=== PATIENT | male | born 1970 | race Caucasian/White ===

== ENCOUNTER 2019-06-25 11:17 | Observation (INO) | payer OTHER ==
[~2019-06-25 11:17] MED LIST: Iopamidol-370 76% 500 ML 1 ML ONE
[2019-06-25] MEDS ORDERED: Morphine 4 MG/ML VIAL ONE ×2 (12:04→12:47)
[2019-06-25] MEDS ORDERED: Ondansetron PF 4 MG/2 ML Vial ONE (12:05)
--- NOTE | 2019-06-25 12:23 | CT ---
CT Brain WO Con: 06/25/2019 12:00 PM CLINICAL HISTORY: Fall off roof with head injury. IMAGING TECHNIQUE: Multiple CT images were obtained of the brain without IV contrast. COMPARISON: None. FINDINGS: Brain: No acute infarct or hemorrhage is evident. No midline shift. Ventricles: Normal. No hydrocephalus. Skull: Intact. Visualized Paranasal sinuses: There is a small mucous retention cyst involving the inferior aspect of the left maxillary sinus. Remaining paranasal sinuses are clear. Mastoid air cells:Clear. Extracranial soft tissues:Normal. IMPRESSION: No acute intracranial abnormality.
--- NOTE | 2019-06-25 12:25 | CT ---
CT Cervical Spine WO Con Indication: Fall off roof with neck injury COMPARISON: None. FINDINGS: Fracture: None. Spinal alignment: No acute malalignment. Craniocervical junction: Within normal limits. Vertebral body heights: Maintained. Cervical spine degenerative change: There is mild multilevel spondylosis of the cervical spine. Lung apices: Clear. IMPRESSION: No acute osseous abnormality.
[2019-06-25 12:34] LABS: #Basophils 0.1 thou/uL (0.0-0.2); #Eosinphils 0.1 thou/uL (0.0-0.7); #Lymphocytes 1.4 thou/uL (1.20-3.40); #Monocytes 0.6 thou/uL (0.11-0.59); #Neutrophils 6.6 thou/uL (1.40-6.50); %Basophils 0.6 % (0.0-1.0); %Eosinophils 1.7 % (0.0-10.0); %Lymphocytes 16.3 % (21.0-51.0); %Monocytes 6.3 % (0.0-10.0); %Neutrophils 75.2 % (42.0-75.0); Hemoglobin 13.8 g/dL (14.0-18.0); Mean Corpuscular Hemoglobin 31.4 pg (27.0-31.0); Mean Corpuscular Volume 92.3 fL (78.0-98.0); Mean Platelet Volume 8.6 fL (7.4-10.4); Platelet Count 213 thou/uL (130-400); RBC Distribution Width 11.6 % (11.5-14.5); White Blood Cell (WBC) Count 8.7 thou/uL (4.8-10.8)
--- NOTE | 2019-06-25 12:38 | CT ---
CT OF THE CHEST, ABDOMEN AND PELVIS WITH IV CONTRAST INDICATION: Fall from roof with right upper back pain COMPARISON: None FINDINGS: CHEST: Lungs: There is a small anterior right-sided pneumothorax. There is bibasilar atelectasis Pleural space: No effusion. Mediastinum: No pathologically enlarged lymph nodes are evident. Axilla: No pathologically enlarged lymph nodes. ABDOMEN: Liver: No focal lesion. Gallbladder: Normal appearing. Pancreas: Normal. Adrenal glands: Normal. Spleen: Normal. Kidneys and ureters: Normal. No hydronephrosis. Vasculature: Normal. Lymph nodes:No lymphadenopathy. Free fluid in abdomen:No free fluid is evident. PELVIS: Small and large bowel: Normal Appendix:Normal Bladder: Normal. Rectal and perirectal soft tissues:Normal. Reproductive structures: Normal. Free fluid in pelvis: No free fluid is evident. Lymphadenopathy pelvis: No lymphadenopathy is evident. Osseous structures: There is a comminuted right scapular body fracture. There are minimally displaced right posterior lateral third through eighth rib fractures. There is scattered degenerative and osteoarthritic changes. Soft tissues:There is a fat-containing umbilical hernia. IMPRESSION: 1. Small right anterior pneumothorax. 2. Right posterior lateral third through eighth rib fractures. 3. Comminuted right scapular body fracture. 4. Findings called to Cyndi Agee at 12:30 PM on June 25, 2019.
[2019-06-25 12:55] LABS: ALT (SGPT) 44 U/L (8-55); AST (SGOT) 38 U/L (5-34); Albumin 4.1 g/dL (3.5-5.0); Alkaline Phosphatase 69 U/L (40-110); Anion Gap 12 mmol/L (10-20); BUN (Urea Nitrogen) 27 mg/dL (8.9-20.6); Bilirubin, Total 0.3 mg/dL (0.2-1.2); Calc. Creatinine Clearance 0 mL/min (70-130); Calcium 8.9 mg/dL (7.8-10.44); Carbon Dioxide 25 mmol/L (22-29); Chloride 102 mmol/L (98-107); Estimated GFR-MDRD 90; Globulin 2.5 g/dL (2.4-3.5); Glucose 127 mg/dL (70-105); Potassium 4.3 mmol/L (3.5-5.1); Protein, Total 6.6 g/dL (6.0-8.3); Sodium 135 mmol/L (136-145)
[2019-06-25] MEDS ORDERED: Ondansetron PF 4 MG/2 ML Vial IVP PRN (13:52)
[2019-06-25] MEDS ORDERED: Dextrose 50% Abboject 50 ML SYRINGE SLOW IVP PRN (13:52)
[2019-06-25] MEDS ORDERED: Dextrose 5% in Water 1,000 ML IV PRN (13:52)
[2019-06-25] MEDS ORDERED: Morphine 4 MG/ML VIAL SLOW IVP PRN (13:52)
[2019-06-25] MEDS ORDERED: hydrALAZINE 20 MG/ML VIAL SLOW IVP PRN (13:52)
[2019-06-25] MEDS ORDERED: traMADol HCl 50 MG TAB PO PRN (13:54)
[2019-06-25] MEDS ORDERED: Cyclobenzaprine 10 MG TAB PO PRN (13:54)
[2019-06-25 14:52] LABS: Bilirubin Negative (Negative); Blood, Urine Negative (Negative); Clarity Clear (Clear); Glucose, Urine (Dipstick) Normal (Negative); Leukocyte Negative Leu/uL (Negative); Nitrite Negative (Negative); Protein, Urine (Dipstick) 10 mg/dL (Neg-Trace); Urobilinogen Normal mg/dL (Less than 2)
--- NOTE | 2019-06-25 15:01 | RAD ---
XR Humerus Rt 2 View STANDARD INDICATION: Trauma to the right arm with right arm pain COMPARISON: None. FINDINGS: Bones: There is a comminuted right scapular body fracture. No acute fracture seen involving the right humerus. Soft tissues: Right-sided rib fractures as seen on the comparison CT performed earlier Joints: The visualized knee and hip appear within normal limits. IMPRESSION: Comminuted right scapular body fracture with numerous right-sided rib fractures. No acute fracture or subluxation of the right humerus.
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
[2019-06-25] MEDS: Gabapentin 300 MG CAP PO SCH ×2 (15:41→20:43)
[2019-06-25] MEDS: Ibuprofen 600 MG TAB PO SCH ×2 (15:41→20:43)
[2019-06-25 15:59] VITALS: BMI 26.6
[2019-06-25] MEDS: Acetaminophen 500 MG TAB PO SCH ×2 (17:42→23:14)
[2019-06-25] MEDS: traMADol HCl 50 MG TAB PO PRN (18:17)
[2019-06-25] MEDS: Senokot S 8.6-50 MG TAB PO SCH (20:43)
[2019-06-25] MEDS ORDERED: Atorvastatin Calcium 40 MG TAB PO SCH (21:00)
--- NOTE | 2019-06-25 22:16 | CON ---
DATE OF CONSULTATION: 06/25/2019 HISTORY OF PRESENT ILLNESS: Mr. 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 The patient was helping work on the roof and fell from 10 feet onto his right shoulder on his deck onto the railing. The patient is complaining of right shoulder and right rib pain. The patient's pain score on admission was 8/10, improved with pain medications. No previous history of right shoulder surgery or injury or dislocation. PAST MEDICAL HISTORY: Includes hyperlipidemia, high cholesterol, and depression. PAST SURGICAL HISTORY: Splenic repair at young age of 12, hernia repairs, and bilateral meniscectomies. ALLERGIES: NO KNOWN DRUG ALLERGIES. MEDICATIONS: Lipitor and Wellbutrin. SOCIAL HISTORY: He is a former smoker. Quit smoking 10 years ago. Drinks socially. 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 REVIEW OF SYSTEMS: Noncontributory. PHYSICAL EXAMINATION: VITAL SIGNS: On admission were 144/91, 72, 16, 98, 96% on room air. GENERAL: Alert and oriented male, in no acute distress. Resting comfortably in bed. EXTREMITIES: Right upper extremity, neurovascularly intact, distally 2+ radial pulse. Medial, ulnar, and radial distributions intact. Volar and dorsiflexion of the fingers noted. The patient is able to flex and extend his elbow as well as move his shoulder, has some pain in his right scapular body with motion. DIAGNOSTIC DATA: Review of the right CT shows a scapular body fracture without extension of the glenoid. The patient has a CT chest, abdomen, pelvis, head and neck with only 3 through 8 rib fractures, scapular body fracture, and right pneumothorax. IMPRESSION: 1. Right scapular body fracture. 2. Right 3 through 8 rib fracture. 3. Right pneumothorax. ASSESSMENT AND PLAN: The patient will be placed in a sling for right arm and will be treated conservatively. He will have a tertiary in the morning. We will follow inhouse. Job ID: [id number] [facility]
--- NOTE | 2019-06-25 22:53 | PRG ---
DATE OF SERVICE: 06/25/2019 SUBJECTIVE: The patient was seen during evening rounds, awake, alert, in no distress. The patient is hospital day #1, status post fall from roof. The patient's pain is well controlled at this time. The patient is using his incentive spirometer reaching 2000 to 2500. The patient is tolerating a regular diet. The patient voices no complaints or concerns at this time. OBJECTIVE: VITAL SIGNS: Stable, afebrile. GENERAL: Well-appearing, middle-aged male, awake, alert, in no distress. PULMONARY: Equal chest rise and fall, respirations are even nonlabored. EXTREMITIES: Moves all extremities. No focal deficits. ASSESSMENT: 1. Status post fall from roof. 2. Small right pneumothorax, stable. 3. Right rib fractures 3 through 8. 4. Comminuted right scapular fracture, nonoperative. 5. Right humerus pain. 6. Acute traumatic pain secondary to injuries above. 7. History of depression and hyperlipidemia. PLAN: Supportive care, pain management, aggressive pulmonary toilet. Ambulate frequently, have Physical Therapy and Occupational therapy work with the patient. The patient's pain is well controlled, and he is able to ambulate without any difficulty. Most likely, the patient will be discharged home tomorrow. The plan was discussed with the patient who agrees. Job ID: [id number]
[2019-06-26] MEDS: Ibuprofen 600 MG TAB PO SCH (05:23)
[2019-06-26] MEDS: Acetaminophen 500 MG TAB PO SCH ×2 (05:24→11:13)
[2019-06-26 05:37] LABS: #Basophils 0.1 thou/uL (0.0-0.2); #Eosinphils 0.2 thou/uL (0.0-0.7); #Lymphocytes 1.8 thou/uL (1.20-3.40); #Monocytes 0.7 thou/uL (0.11-0.59); #Neutrophils 4.9 thou/uL (1.40-6.50); %Basophils 0.8 % (0.0-1.0); %Eosinophils 3.2 % (0.0-10.0); %Lymphocytes 23.7 % (21.0-51.0); %Monocytes 8.6 % (0.0-10.0); %Neutrophils 63.8 % (42.0-75.0); Mean Corpuscular HGB CONC 34.3 g/dL (32.0-36.0); Mean Corpuscular Hemoglobin 31.7 pg (27.0-31.0); Mean Corpuscular Volume 92.5 fL (78.0-98.0); Mean Platelet Volume 8.5 fL (7.4-10.4); Platelet Count 185 thou/uL (130-400); RBC Distribution Width 11.7 % (11.5-14.5); White Blood Cell (WBC) Count 7.7 thou/uL (4.8-10.8)
[2019-06-26 05:43] LABS: Anion Gap 12 mmol/L (10-20); BUN (Urea Nitrogen) 17 mg/dL (8.9-20.6); Calc. Creatinine Clearance 103 mL/min (70-130); Calcium 8.6 mg/dL (7.8-10.44); Carbon Dioxide 28 mmol/L (22-29); Chloride 103 mmol/L (98-107); Estimated GFR-MDRD 79; Glucose 91 mg/dL (70-105); Magnesium 2.3 mg/dL (1.6-2.6); Phosphorus 3.7 mg/dL (2.3-4.7); Potassium 4.4 mmol/L (3.5-5.1); Sodium 139 mmol/L (136-145)
[2019-06-26] MEDS: traMADol HCl 50 MG TAB PO PRN (06:59)
[2019-06-26] MEDS: Senokot S 8.6-50 MG TAB PO SCH (08:02)
[2019-06-26] MEDS: Gabapentin 300 MG CAP PO SCH (08:02)
[2019-06-26] MEDS ORDERED: Bupropion 150 MG XL TAB PO SCH (09:00)
[2019-06-26] MEDS ORDERED: Polyethylene Glycol 3350 17 GM Packet PO SCH (09:00)
--- NOTE | 2019-06-26 09:30 | RAD ---
PORTABLE SUPINE CHEST: DATE: 06/26/2019. PROVIDED CLINICAL HISTORY: Pneumothorax. FINDINGS: Correlation is made with the CT chest, abdomen, and pelvis performed 06/25/2019. The supine nature of the examination is not sensitive for detection of pneumothorax. Given this limitation, there is no radiographic evidence for such. Multiple right-sided rib fractures are demonstrated. No focal conso lidation is evident. IMPRESSION: Right-sided rib fractures without evidence for pneumothorax, with limitations as described. POS: [facility]
--- NOTE | 2019-06-26 09:59 | PRG ---
DATE OF SERVICE: 06/26/2019 HISTORY OF PRESENT ILLNESS: Mr. Laboy is a 48-year-old male, right-hand dominant, fell about 10 feet onto his right shoulder, has a right scapular body fracture. The patient was admitted for a small pneumothorax as well as multiple rib fractures. He is resting comfortably in bed, afebrile. OBJECTIVE: VITAL SIGNS: Stable. GENERAL: Alert and oriented male, in no acute distress, resting comfortably in bed. EXTREMITIES: Right upper extremity is neurovascularly intact distally, nontender to palpation. Right lower extremity is neurovascular intact, nontender to palpation. Left lower extremity, full range of motion, nontender to palpation. Pelvis is stable. IMPRESSION: Right scapular body fracture. ASSESSMENT AND PLAN: The patient will be discharged home per Trauma. Begin passive range of motion as tolerated in his right arm, sling as needed for comfort for next 1 to 2 weeks. The patient is from [place] and may follow up in that area with orthopedic surgeon or he can follow up here in 2 to 3 weeks. Job ID: [id number]
[2019-06-26 11:20] VITALS: TEMP 98.3
[2019-06-26 12:04] VITALS: BP 122/81
--- NOTE | 2019-06-26 13:25 | DIS ---
DATE OF ADMISSION: 06/25/2019 DATE OF DISCHARGE: 06/26/2019 ADMISSION DIAGNOSES: Fall from roof, small right pneumothorax, right 3 through 8 rib fractures, right scapular fracture. DISCHARGE DIAGNOSES: Fall from roof, small right pneumothorax, right 3 through 8 rib fractures, right scapular fracture. CONSULTING PHYSICIAN: None. PROCEDURES: None. HOSPITAL COURSE: The patient is a 48-year-old male who presented to the emergency department via EMS after a mechanical fall from a roof. He was found to have a right small pneumothorax, right 3 through 8 rib fractures, right scapular fracture, and was admitted under OBS to the Trauma Service for pain control. The next day, the patient was tolerating regular diet. His pain is well controlled. He ambulated well with Physical and Occupational Therapy and scapular fracture was nonoperative. He was discharged home. DISCHARGE DISPOSITION: Home. DISCHARGE CONDITION: Satisfactory. PHYSICAL EXAMINATION: VITAL SIGNS: Temperature 98.3, pulse 74, respirations 18, oxygen saturation 96% on room air, blood pressure 112/70. GENERAL: Well-appearing middle-aged male, sitting up in bed with no signs of acute distress. PULMONARY: Equal chest rise and fall. Clear breath sounds bilaterally. No signs of acute respiratory distress. CARDIAC: Regular rate and rhythm. GASTROINTESTINAL: Abdomen is soft, nontender, nondistended. EXTREMITIES: 2+ pulses in all extremities. Gross motor and sensation intact. Sling to right upper extremity is in place and fitting appropriately. NEUROLOGIC: GCS is 15. DISCHARGE INSTRUCTIONS: The patient was discharged home. Activity as tolerated. Right arm in sling for comfort, passive range of motion. Regular diet. No PT/OT needs. He was discharged with a sling. MEDICATIONS: Tylenol, ibuprofen, Flexeril, gabapentin, tramadol, Wellbutrin and Lipitor. The [facility] was accessed and there was no history of pain medications reported. FOLLOWUP APPOINTMENTS: The patient has a followup appointment with Dr. Menon in 2 to 3 weeks. He also has a followup appointment with Dr. Concepcion in [facility]uma [facility] on July 11, 2019 at 2:10 p.m. He is to complete a chest x-ray before his followup. This is a summary of the patient's hospitalization. For full details, please see the medical record in its entirety. This patient was seen and evaluated by myself and Dr. Mendez on the day of discharge. Job ID: [id number]
== END 2019-06-26 12:22 | disposition home or self-care (01) ==
LOC: ERS 11:17 → SURG A 15:19
PROVIDERS: ADMIT Surgery; ATTEND Surgery
DX: S27.0XXA Traumatic pneumothorax, initial encounter (principal); S22.41XA Multiple fractures of ribs, right side, initial encounter for closed fracture; S42.111A Displaced fracture of body of scapula, right shoulder, initial encounter for closed fracture; E78.00 Pure hypercholesterolemia, unspecified; E78.5 Hyperlipidemia, unspecified; F32.9 Major depressive disorder, single episode, unspecified; G89.11 Acute pain due to trauma; Z79.899 Other long term (current) drug therapy; Z87.891 Personal history of nicotine dependence; W13.2XXA Fall from, out of or through roof, initial encounter
CPT/HCPCS: 36415; 70450; 71045; 71260; 72125; 74177; 80048; 80053; 81003; 83735; 84100; 85025; 96361; 96374; 96375; 96376; G0378; G0390; J2270; J2405; Q9967

== ENCOUNTER 2019-07-11 09:13 | Outpatient (CLI) | payer OTHER ==
--- NOTE | 2019-07-11 13:43 | RAD ---
CHEST 2 VIEWS: HISTORY: Followup rib fractures from an injury from a fall 2 weeks ago. COMPARISON: 06/26/2019. FINDINGS: There are again noted to be multiple right-sided rib fractures. No evidence of pneumothorax or pleur al effusion. Heart size is normal. The left lung is clear. IMPRESSION: Multiple right-sided rib fractures without pneumothorax or pleural effusion or other new process. POS: [facility]
== END 2019-07-11 09:14 | disposition home or self-care (01) ==
LOC: BICRAD 09:13
PROVIDERS: ATTEND Physician Assistant
DX: S22.41XD Multiple fractures of ribs, right side, subsequent encounter for fracture with routine healing (principal)
CPT/HCPCS: 71046